=== PATIENT | male | born 1965 | race Caucasian/White ===

== ENCOUNTER 2017-01-18 17:02 | Inpatient (IN) | payer MEDICAID ==
[~2017-01-18] VITALS: Ht 165.1 cm; Wt 85.7 kg
[2017-01-18 21:46] LABS: BASOPHILS % 0.4 % (0.0-2.0); EOSINOPHILS % 1.7 % (0.0-5.0); HEMATOCRIT. 40.4 % (42.0-52.0); HEMOGLOBIN. 13.5 g/dL (14.0-18.0); LYMPHOCYTES % 32.8 % (20.0-50.0); MEAN CORPUSCULAR HEMOGLOBIN 31.3 pg (28.0-32.0); MEAN CORPUSCULAR VOLUME 93.5 fL (80.0-94.0); MEAN PLATELET VOLUME 7.9 fl (7.4-10.4); MONOCYTES % 6.3 % (2.0-8.0); NEUTROPHILS % 58.8 % (40.0-76.0); PLATELET 246 x1000/uL (130-400); RED BLOOD CELL COUNT 4.32 mill/uL (4.7-6.1); RED CELL DISTRIBUTION WIDTH 13.7 % (11.6-14.6)
[2017-01-18 21:49] LABS: CHLORIDE 105 mEq/L (98-107)
[2017-01-18 21:53] LABS: CARBON DIOXIDE 25 mEq/L (21-32); INR 1.1
[2017-01-18 22:01] LABS: TROPONIN I 0.08 ng/mL (0.00-0.04)
[2017-01-18] MEDS ORDERED: ASPIRIN 81MG TABLET PO ONE (23:00)
[2017-01-18] MEDS ORDERED: NITROGLYCERIN 0.4MG TABLET SL SL PRN (23:00)
[2017-01-19 02:30] VITALS: BP 139/99
[2017-01-19 06:30] VITALS: BP 121/77
[2017-01-19] MEDS ORDERED: HYDROCODONE/ACETAMINOPHEN 5/325MG TABLET PO PRN (06:45)
[2017-01-19 08:00] VITALS: BP 113/70
[2017-01-19] MEDS: ENOXAPARIN 30MG/0.3ML SYR SUBCUT SCH ×2 (09:29→21:13)
[2017-01-19 10:08] LABS: CREATINE KINASE MB FRACTION 0.6 ng/mL (0.5-3.6); T4 FREE 1.04 ng/dL (0.76-1.46); TROPONIN I 0.09 ng/mL (0.00-0.04)
[2017-01-19] MEDS ORDERED: CLOPIDOGREL 75MG TABLET PO SCH (10:15)
[2017-01-19 12:00] VITALS: BP 108/70
[2017-01-19 15:38] LABS: CREATINE KINASE MB FRACTION 0.7 ng/mL (0.5-3.6); TROPONIN I 0.09 ng/mL (0.00-0.04)
[2017-01-19 16:00] VITALS: BP 109/70
[2017-01-19 20:42] VITALS: BP 114/74
[2017-01-19] MEDS ORDERED: ATORVASTATIN CALCIUM 20MG TABLET PO SCH (21:00)
[2017-01-20] MEDS ORDERED: ASPIRIN 81MG TABLET PO SCH (09:00)
== END 2017-01-19 22:20 | disposition short-term general hospital (02) | DRG 203 ==
LOC: ER 18:49 → 7WST 23:13 → ENRESERV 01-19 00:09
PROVIDERS: ADMIT Internal Medicine; ATTEND Internal Medicine
DX: M94.0 Chondrocostal junction syndrome [Tietze] (principal); E78.5 Hyperlipidemia, unspecified; F17.200 Nicotine dependence, unspecified, uncomplicated; R74.8 Abnormal levels of other serum enzymes; R20.0 Anesthesia of skin; Z82.49 Family history of ischemic heart disease and other diseases of the circulatory system
CPT/HCPCS: 36415; 71010; 80053; 80061; 82550; 82553; 83036; 83880; 84439; 84443; 84484; 85025; 85379; 85610; 93005; 93306; 93970; 99285; J1650